=== PATIENT | female | born 1990 | race Hispanic/Latino ===

== ENCOUNTER 2024-08-30 12:34 | Emergency (ER) | payer OTHER ==
[~2024-08-30] VITALS: Ht 157.5 cm; Wt 81.6 kg
[2024-08-30 12:49] VITALS: BP 142/92; PULSE 74; RESP 20; TEMP 98.8; O2SAT 97
[2024-08-30] MEDS ORDERED: PRED20TA3 PO (12:56)
--- NOTE | 2024-08-30 12:59 | ERN ---
General Chief Complaint: Face Pain/Problem Stated Complaint: POSSIBLE STROKE,NUMBNESS LEFT SIDE Time Seen by MD: 12:35 History of Present Illness Initial Comments Otherwise healthy 34-year-old female who presents for left-sided facial weakness beginning this morning. She woke up and she was unable to move the left side of her face. No other symptoms. Allergies: Coded Allergies: No Known Drug Allergies (Unverified Allergy, Unknown, 08/30/24) Past Medical History Past Medical History: No Pertinent History Past Surgical History: Female( History) LMP: Nov 15, 2023 : 2 Para: 2 Aborts: 0 ROS Dictation CONSTITUTIONAL: No chills, no fever, no weakness, no diaphoresis, no malaise. HEAD/FACE: No signs of trauma. EENT: No eye pain, no blurred vision, no tearing, no double vision, no ear pain, no ear discharge, no nose pain, no nasal congestion, no throat pain, no throat swelling, no mouth pain. RESPIRATORY: No cough, no orthopnea, no SOB, no stridor, no wheezing. CARDIOVASCULAR: No chest pain, no edema, no palpitations, no syncope. GASTROINTESTINAL/ABDOMINAL: No abdominal pain, no constipation, no diarrhea, no nausea, no vomiting. GENITOURINARY: No abnormal discharge, no dysuria, no frequent urination, no hematuria. No complaints of pain in the genitals. MUSCULOSKELETAL: Left-sided face weakness INTEGUMENTARY: No change in color, no change in hair/nails, no dryness, no lesion, no lumps, no rash. NEUROLOGICAL/PSYCH: No anxiety, not depressed, no emotional problem, no headache, no numbness, no pre-existing deficit, no history of seizures, no t remors, no weakness. HEMATOLOGIC/LYMPHATIC: Not anemic, no history of blood clots, no apparent bleeding, no bruising, glands not swollen. All Systems Negative, Except as Noted. Physical Exam Physical Exam Dictation VITAL SIGNS: Reviewed. GENERAL APPEARANCE: Alert, oriented x3, no acute distress. HEAD AND FACE: Non-traumatic. EYES: PERRL, pink conjunctivas, eyelid no trauma, anterior chamber clear. EARS: Pinnas intact and no signs of trauma or erythema. Ear canals clear and no discharge. TMs no erythema. NOSE: No discharge, no bleeding. OROPHARYNX: Mouth normal, teeth no caries, tongue pink. Pharynx clear, no erythema. Tonsils no exudates, no abscesses noted. Mucous membrane moist. NECK: Supple, non-tender, no thyromegaly, no masses, no JVD, no bruits. BREAST: Deferred. CHEST: No tenderness, no crepitus, no paradoxical movement, no retractions. LUNGS: Clear, well-ventilated, symmetric, no rales, no wheezing, no rhonchi, no stridor, good breath sounds bilaterally. HEART: Regular rate, regular rhythm, no murmur, no gallops. VASCULAR: No peripheral edema. ABDOMEN: Soft, positive bowel sounds, nondistended, no guarding, nontender, no rebound, no masses no hepatomegaly, no splenomegaly, no Schafer's sign, no hernias. RECTAL: Deferred. GENITAL: Deferred. NEUROLOGICAL: Normal speech, gross motor function intact, gross sensory funct ion intact. Left face palsy, no movement to the eyebrows, unable to close I completely, unable to close mouth completely. MUSCULOSKELETAL: Neck nontender, full range of motion, back nontender, full range of motion. EXTREMITIES: Nontender, full range of motion. SKIN: Color pink, dry, no turgor, no rash, no lacerations, no abrasions, no contusions. LYMPHATICS: Deferred. MDM CC: Left-sided facial weakness Historian: Patient Comorbidities: None No limitations by social determinants of health Differential diagnosis: Stroke versus Holman's palsy Clinically there is a Holman's palsy. She has no focal neurologic deficits other than cranial nerves on the left. He has bilateral arm movement leg movement. No paresthesias. The forehead is included in the palsy as well as the eye of the face. No labs or imaging indicated. This is a Holman's palsy. ENT exam is otherwise normal. We will DC with supportive care, steroids, antiviral. ED Course Vital Signs Date Time Temp Pulse Resp B/P (MAP) Pulse Ox O2 Delivery O2 Flow Rate FiO2 08/30/24 12:41 98.8 84 20 Room Air 0 DX & DISP Disposition: Discharge Departure Impression: Primary Impression: Holman's palsy Condition: Stable Scripts Prednisone (Prednisone) 20 Mg Tablet 1 TAB PO TID for 5 Days, #22 TAB 0 Refills Prov: LEANNE ROBIN DO 08/30/24 Additional Instructions: You have Holman's palsy. This is a condition that causes temporary weakness or paralysis of muscles of once over the face. Is often reviewed inflammation of the facial nerve. Most cases resolve within weeks to months. I have prescribed prednisone, which is an anti-inflammatory steroid. On days 1 through 5 of treatment, take 3 tabs daily. On days 6 & 7, take two tabs daily. 0n days 8 through 10, take one tab daily. Eye care is important. Use artificial tears throughout the day to prevent dehydration. I recommend I have protection, specifically at night. Performed gentle facial exercises to maintain muscle tone. Examples include trying to rise your eyebrows, smiling, and puckering your lips. Patient is here in the emergency department if you develop any other symptoms. Please follow up with the primary doctor in 1-2 weeks for re-evaluation. Referrals: BABAR KRUSE MD (PCP) LEANNE ROBIN DO Aug 30, 2024 12:59
== END 2024-08-30 13:04 | disposition home or self-care (01) ==
LOC: EDH 12:34
DX: G51.0 Bell's palsy (principal); Z98.890 Other specified postprocedural states
CPT/HCPCS: 99283